=== PATIENT | female | born 1985 | race African-American/Black ===

== ENCOUNTER 2017-12-17 04:11 | Inpatient (IN) | payer MEDICAID ==
[2017-12-17] VITALS (24 sets, daily range): BP systolic 135–192; BP diastolic 65–124; PULSE 98–141; RESP 16–21; TEMP 98.6–98.7; O2SAT 98–100
[~2017-12-17] VITALS: Ht 165.1 cm; Wt 109.0 kg
[~2017-12-17 04:11] MED LIST: ALPR-138 PO; LISI10 PO
[2017-12-17] MEDS ORDERED: FAMOTIDINE 20 MG/2 ML VIAL IV PUSH SCH ×2 (04:30→09:00)
[2017-12-17] MEDS ORDERED: diphenhydrAMINE HCL 50 MG/ML VIAL IV PUSH ONE (04:30)
[2017-12-17] MEDS ORDERED: EPINEPHrine HCL (1:1000) 1 MG/ML VIAL IM ONE (04:30)
[2017-12-17] MEDS ORDERED: methylPREDNISolone SOD SUCC 125 MG/2 ML VIAL IV PUSH ONE (04:30)
[2017-12-17] MEDS ORDERED: LISI-515 PO (04:49)
--- NOTE | 2017-12-17 04:51 | PD ---
HPI Chief Complaint: Allergic/Adverse Reaction Time Seen by Provider: 04:21 Travel History International Travel<30 days: No Contact w/Intl Traveler<30days: No Traveled to known affect area: No History of Present Illness HPI The patient is a 32 year old female who presents to the [facility] emergency department with a history of tongue swelling and lip swelling that she first noticed approximately 3 hours prior to arrival. The patient reports that she has had similar tongue swelling many years ago related to a food allergy. She reports that she believes that she was exposed to 1 of her allergens yesterday morning. She reports that she was exposed to tomato sauce. The patient incidentally also is on lisinopril for her blood pressure. She has been on this medication for the last 4 years. She denies having any chest pain, chest pressure, or shortness of breath. She denies having any rash or generalized itching. She denies having any abdominal pain, nausea, vomiting, or diarrhea. On review of systems otherwise, she denies having any known recent fevers, cough, congestion, neck pain, urinary symptoms, or neurologic symptoms. [facility] Past Medical History Narrative Medical The patient's past medical history is significant for anxiety disorder, hypertension, multiple environmental allergies and food allergies. Anemia: Yes Arthritis: No Asthma: No Autoimmune Disease: No Anxiety: Yes Depression: No Heart Rhythm Problems: No Cancer: No Cardiovascular Problems: Yes High Cholesterol: No Chemotherapy: No Chest Pain: Yes (STRESS INDUCED) Congestive Heart Failure: No COPD: No Cerebrovascular Accident: No Diabetes: No Endocrine: No Gastrointestinal Disorders: Yes GERD: No Genitourinary: Yes (UNSURE OF KIDNEY ISSUE) Headaches: Yes Hiatal Hernia: No Hypertension: Yes Immune Disorder: No Implanted Vascular Access Dvce: No Kidney Stones: No Musculoskeletal: No Neurologic: Yes Psychiatric: No Reproductive: No Respiratory: Yes Immunizations Current: Yes Migraines: Yes Radiation Therapy: No Renal Failure: No Seizures: No Sickle Cell Disease: No Sleep Apnea: No Thyroid Disease: No Ulcer: No Influenza Vaccination: No ?: Unknown LMP: 12/03/2017 Menopausal: No : 4 Para: 4 Past Surgical History Narrative Surgical The patient's past surgical history is significant for a . Abdominal Surgery: No AICD: No Arteriovenous Shunt: No Cardiac Surgery: No Section: Yes Ear Surgery: No Endocrine Surgery: No Eye Surgery: No Genitourinary Surgery: No Gynecologic Surgery: Yes () Insulin Pump: No Joint Replacement: No Oral Surgery: No Pacemaker: No Thoracic Surgery: No Other Surgery: Yes Social History Alcohol Use: No Tobacco Use: No Substance Use: No Allergies-Medications (Allergen,Severity, Reaction): Coded Allergies: ciprofloxacin (Verified Allergy, Intermediate, DIZZINESS, 12/17/17) Reported Meds & Prescriptions Reported Meds & Active Scripts Active Review of Systems Except as stated in HPI: all other systems reviewed are Neg General / Constitutional: No: Fever Eyes: No: Visual changes HENT: Positive: Other (tongue swelling), No: Headaches Cardiovascular: No: Chest Pain or Discomfort Respiratory: No: Shortness of Breath Gastrointestinal: No: Abdominal Pain Genitourinary: No: Dysuria Musculoskeletal: No: Pain Skin: No Rash Neurologic: No: Weakness, Focal Abnormalities, Change in Mentation, Slurred Speech, Sensory Disturbance Psychiatric: No: Depression Endocrine: No: Polydipsia Hematologic/Lymphatic: No: Easy Bruising Physical Exam Narrative General: The patient is a well-developed well-nourished female in no acute distress. Head and Neck exam: Head is normocephalic atraumatic. Eyes: EOMI, pupils are equal round and reactive to light. Nose: Midline septum with pink mucous membranes Mouth: Dentition unremarkable. Tongue is noted to be protruding from her mouth. The patient is also noted to have swelling along the lower right lip. Moist mucus membranes. Posterior oropharynx is not erythematous. No tonsillar hypertrophy. Uvula midline. Airway patent. Neck: No palpable lymphadenopathy. No nuchal rigidity. No thyromegaly. Cardiovascular: Regular rate and rhythm without murmurs, gallops, or rubs. No pulse deficit to the extremities. Lungs: Clear to auscultation bilaterally. No wheezes, rhonchi, or rales. Abdomen: Soft, without tenderness to palpation in all 4 quadrants of the abdomen. No guarding, rebound, or rigidity. Normal bowel sounds are audible. No tenderness on palpation of McBurney's point. Negative Leung sign. Extremities: No clubbing, cyanosis, or edema. 2+ pulses in all 4 extremities. Back: No costovertebral angle tenderness to palpation. Neurologic Exam: Grossly nonfocal. Skin Exam: No rash noted. Intact skin that is warm and dry. Data Data Last Documented VS Vital Signs Date Time Temp Pulse Resp B/P (MAP) Pulse Ox O2 Delivery O2 Flow Rate FiO2 12/17/17 04:43 100 20 100 Room Air 12/17/17 04:41 135/80 Orders Orders Complete Blood Count With Diff (12/17/17 04:21) Basic Metabolic Panel (Bmp) (12/17/17 04:21) Iv Access Insert/Monitor (12/17/17 04:21) Ecg Monitoring (12/17/17 04:21) Oximetry (12/17/17 04:21) Fresh Frozen Plasma (Ffp) (12/17/17 04:21) Methylprednisolone So Succ Inj (Solumedr (12/17/17 04:30) Epinephrine (1:1000) Inj (Adrenalin (1:1 (12/17/17 04:30) Diphenhydramine Inj (Benadryl Inj) (12/17/17 04:30) Famotidine Inj (Pepcid Inj) (12/17/17 04:30) Type And Screen (12/17/17 04:22) Admit Order (Ed Use Only) (12/17/17 05:06) Labs Laboratory Tests Test 12/17/17 04:45 White Blood Count 6.2 TH/MM3 Red Blood Count 4.30 MIL/MM3 Hemoglobin 12.9 GM/DL Hematocrit 38.8 % Mean Corpuscular Volume 90.1 FL Mean Corpuscular Hemoglobin 30.0 PG Mean Corpuscular Hemoglobin Concent 33.3 % Red Cell Distribution Width 12.8 % Platelet Count 247 TH/MM3 Mean Platelet Volume 9.5 FL Neutrophils (%) (Auto) 49.6 % Lymphocytes (%) (Auto) 39.2 % Monocytes (%) (Auto) 7.7 % Eosinophils (%) (Auto) 2.6 % Basophils (%) (Auto) 0.9 % Neutrophils # (Auto) 3.1 TH/MM3 Lymphocytes # (Auto) 2.4 TH/MM3 Monocytes # (Auto) 0.5 TH/MM3 Eosinophils # (Auto) 0.2 TH/MM3 Basophils # (Auto) 0.1 TH/MM3 CBC Comment DIFF FINAL Differential Comment Blood Urea Nitrogen 10 MG/DL Creatinine 0.95 MG/DL Random Glucose 110 MG/DL Calcium Level 8.8 MG/DL Sodium Level 137 MEQ/L Potassium Level 3.9 MEQ/L Chloride Level 106 MEQ/L Carbon Dioxide Level 22.3 MEQ/L Anion Gap 9 MEQ/L Estimat Glomerular Filtration Rate 82 ML/MIN MDM Medical Decision Making Medical Screen Exam Complete: Yes Emergency Medical Condition: Yes Medical Record Reviewed: Yes Differential Diagnosis Allergic reaction, versus angioedema related to ARTHUR inhibitor, versus hereditary angioedema Narrative Course During the course of the patient's emergency department visit, the patient's history, examination, and differential diagnosis were reviewed with the patient. The patient was placed on a cardiac exercise physiologist with oximetry and frequent blood pressure monitoring. The patient had IV access obtained and blood work sent for analysis. The patient was initially provided Benadryl 25 mg IV, Solu-Medrol 125 mg IV, epinephrine 0.3 IM, famotidine 20 mg IV. An order was written for 2 units of fresh frozen plasma to be administered. As the patient has a history of having similar angioedema as a teenager prior to being placed on an ARTHUR inhibitor hereditary angioedema is in the differential. Fresh frozen plasma has been known to be effective in cases of hereditary angioedema. The patient was agreeable with the plan to administer this. The patient's laboratory studies were reviewed and remarkable for a CBC that is within normal limits, basic metabolic profile is remarkable for a glucose of 110. The patient was repeatedly reassessed during the first hour of her emergency department visit while she was being administered medications for improvement of the angioedema. Gradually the patient's tongue swelling began to improve. The patient was then able to close her mouth. The patient is able to speak more clearly. The patient will be admitted to the intensive care unit for continued close monitoring while being treated for angioedema. The patient's results were discussed with the patient, including the plan of care. I explained that further testing and/ or monitoring is indicated based on the patient's history, examination, and/ or laboratory findings. Therefore, I recommended admission for additional evaluation. The patient expressed understanding and was agreeable with this plan. The patient was admitted to the hospital in guarded condition and sent to a bed under the care of the shipping point inspector service. Physician Communication Physician Communication The patient's case including history, pertinent physical examination findings, and laboratory studies were discussed with Dr. Arce. It was agreed that the patient would be admitted to the shipping point inspector service Diagnosis Primary Impression: Angioedema Qualified Codes: T78.3XXA - Angioneurotic edema, initial encounter Admitting Information Admitting Physician Requests: Admit Sarah Bhakta MD Dec 17, 2017 04:51
[2017-12-17 05:01] LABS: AUTOMATED NEUTROPHIL # 3.1 TH/MM3 (1.8-7.7); BASOPHIL # 0.1 TH/MM3 (0-0.2); BASOPHIL % 0.9 % (0.0-2.0); EOSINOPHIL # 0.2 TH/MM3 (0-0.4); EOSINOPHIL % 2.6 % (0.0-4.0); HEMATOCRIT 38.8 % (35.0-46.0); HEMOGLOBIN 12.9 GM/DL (11.6-15.3); LYMPH % 39.2 % (9.0-44.0); LYMPHOCYTE # 2.4 TH/MM3 (1.0-4.8); MEAN CELL VOLUME 90.1 FL (80.0-100.0); MEAN CORPUSCULAR HGB CONC 33.3 % (32.0-36.0); MEAN PLATELET VOLUME 9.5 FL (7.0-11.0); MONO % 7.7 % (0.0-8.0); MONOCYTE # 0.5 TH/MM3 (0-0.9); NEUT % 49.6 % (16.0-70.0); PLATELET COUNT 247 TH/MM3 (150-450); RED CELL DISTRIBUTION WIDTH 12.8 % (11.6-17.2); WHITE BLOOD COUNT 6.2 TH/MM3 (4.0-11.0)
[2017-12-17] MEDS ORDERED: SODIUM CHLOR 0.9% 1000 ML INJ 1,000 ML IV SCH (05:11)
[2017-12-17] MEDS ORDERED: BISACODYL 10 MG SUPP RECTAL PRN (05:15)
[2017-12-17] MEDS ORDERED: MORPHINE SULFATE 4 MG/ML INJ IV PUSH PRN (05:15)
[2017-12-17] MEDS ORDERED: SENNOSIDES 8.6 MG TAB PO PRN (05:15)
[2017-12-17] MEDS ORDERED: LACTULOSE SYRUP 20 GM/30 ML CUP PO PRN (05:15)
[2017-12-17] MEDS ORDERED: SODIUM CHLORIDE 0.9% FLUSH 10 ML FLUSH IV FLUSH PRN (05:15)
[2017-12-17] MEDS ORDERED: LORazepam 2 MG/ML VIAL IV PUSH PRN (05:15)
[2017-12-17] MEDS ORDERED: MISCELLANEOUS NURSING INFORMATION XX SCH (05:15)
[2017-12-17] MEDS ORDERED: RESP: ALBUTEROL 2.5 MG/IPRATROPIUM 0.5 MG NEB (PRN) INH (05:15)
[2017-12-17] MEDS ORDERED: MAGNESIUM HYDROXIDE SUSP 30 ML CUP PO PRN (05:15)
[2017-12-17] MEDS ORDERED: ONDANSETRON HCL 4 MG/2 ML VIAL IV PUSH PRN (05:15)
[2017-12-17] MEDS ORDERED: CHLORHEXIDINE GLUCONATE 2 % 1 PACK (2 CLOTHS) TOP PRN (05:15)
[2017-12-17] MEDS ORDERED: ACETAMINOPHEN 325 MG TAB PO PRN (05:15)
[2017-12-17] MEDS ORDERED: TEMAZEPAM 15 MG CAP PO PRN (05:15)
--- NOTE | 2017-12-17 05:25 | HHI.HP ---
[facility] Critical Care Medicine Primary Care Physician Jai Wilson, DO Admission Diagnosis Angioedema Diagnosis: Travel History International Travel<30 Days: No Contact w/Intl Traveler <30 Da: No Traveled to Known Affected Are: No History of Present Illness 32 year old female presents with a history of tongue swelling and lip swelling that she first noticed approximately 3 hours prior to arrival. The patient reports that she has had similar tongue swelling many years ago related to a food allergy. She reports that she believes that she was exposed to 1 of her allergens yesterday morning which was tomato sauce. The patient is also on lisinopril for her blood pressure. She has been on this medication for the last 4 years. She denies having any chest pain, chest pressure, or shortness of breath. She denies having any rash or generalized itching. She denies having any abdominal pain, nausea, vomiting, or diarrhea. Review of Systems Constitutional: DENIES: Diaphoretic episodes, Fatigue, Fever, Weight gain, Weight loss, Chills, Dizziness, Change in appetite, Night Sweats Endocrine: DENIES: Abnorml menstrual pattern, Heat/cold intolerance, Polydipsia , Polyuria, Polyphagia Eyes: DENIES: Blurred vision, Diplopia, Eye inflammation, Eye pain, Vision loss , Photosensitivity, Double Vision Ears, nose, mouth, throat: DENIES: Tinnitus, Hearing loss, Vertigo, Nasal discharge, Oral lesions, Throat pain, Hoarseness, Ear Pain, Running Nose, Epistaxis, Sinus Pain, Toothache, Odynophagia Respiratory: DENIES: Apneas, Cough, Snoring, Wheezing, Hemoptysis, Sputum production, Shortness of breath Cardiovascular: DENIES: Chest pain, Palpitations, Syncope, Dyspnea on Exertion , PND, Lower Extremity Edema, Orthopnea, Claudication Gastrointestinal: DENIES: Abdominal pain, Black stools, Bloody stools, Constipation, Diarrhea, Nausea, Vomiting, Difficulty Swallowing, Anorexia Genitourinary: DENIES: Abnormal vaginal bleeding, Dysmenorrhea, Dyspareunia, Sexual dysfunction, Urinary frequency, Urinary incontinence, Urgency, Hematuria , Dysuria, Nocturia, Vaginal discharge Musculoskeletal: DENIES: Joint pain, Muscle aches, Stiffness, Joint Swelling, Back pain, Neck pain Integumentary: DENIES: Abnormal pigmentation, Pruritus, Rash, Nail changes, Breast masses, Breast skin changes, Nipple discharge Hematologic/lymphatic: DENIES: Bruising, Lymphadenopathy Immunologic/allergic: DENIES: Eczema, Urticaria Neurologic: DENIES: Abnormal gait, Headache, Localized weakness, Paresthesias, Seizures, Speech Problems, Tremor, Poor Balance Psychiatric: DENIES: Anxiety, Confusion, Mood changes, Depression, Hallucinations, Agitation, Suicidal Ideation, Homicidal Ideation, Delusions Past Family Social History Allergies: Coded Allergies: ciprofloxacin (Verified Allergy, Intermediate, DIZZINESS, 12/17/17) Past Medical History Hypertension Food allergies Past Surgical History Reported Medications Reported Meds & Active Scripts Active Lisinopril Active Ordered Medications Current Medications Medications (Trade) Dose Ordered Sig/Bryon Route PRN Reason Start Time Stop Time Status Last Admin Dose Admin Famotidine (Pepcid Inj) 20 mg NOW IV PUSH 12/17/17 04:30 12/17/17 04:41 Sodium Chloride 1,000 ml @ 84 mls/hr [id number] IV 12/17/17 05:11 UNV Sodium Chloride (NS Flush) 2 ml UNSCH PRN IV FLUSH FLUSH AFTER USING IV ACCESS 12/17/17 05:15 UNV Sodium Chloride (NS Flush) 2 ml BID IV FLUSH 12/17/17 09:00 UNV Acetaminophen (Tylenol) 650 mg Q6H PRN PO PAIN 1-5 AND/OR FEVER >101F 12/17/17 05:15 UNV Morphine Sulfate (Morphine Inj) 2 mg Q2H PRN IV PUSH PAIN SCALE 6 TO 10 12/17/17 05:15 UNV Famotidine (Pepcid Inj) 20 mg Q12HR IV PUSH 12/17/17 09:00 UNV Lorazepam (Ativan Inj) 2 mg Q4H PRN IV PUSH Agitation/Sedation 12/17/17 05:15 UNV Ondansetron HCl (Zofran Inj) 4 mg Q6H PRN IV PUSH NAUSEA OR VOMITING 12/17/17 05:15 UNV Temazepam (Restoril) 15 mg HS PRN PO INSOMNIA 12/17/17 05:15 UNV Albuterol/ Ipratropium (Duoneb Neb) 1 ampule Q2HR NEB PRN INH WHEEZING 12/17/17 05:15 UNV Enoxaparin Sodium (Lovenox Inj) 40 mg Q24H SQ 12/17/17 05:15 UNV Miscellaneous Information 1 [id number] XX 12/17/17 05:15 UNV Chlorhexidine Gluconate (Chlorhexidine 2% Cloth) 3 pack Taper DAILY@04 TOP 12/18/17 04:00 12/14/18 03:59 UNV Chlorhexidine Gluconate (Chlorhexidine 2% Cloth) 3 pack UNSCH PRN TOP HYGIENIC CARE 12/17/17 05:15 UNV Senna/Docusate Sodium (Maryse-Colace) 1 tab BID PO 12/17/17 09:00 UNV Magnesium Hydroxide (Milk Of Magnesia Liq) 30 ml Q12H PRN PO Mild constipation 12/17/17 05:15 UNV Sennosides (Senokot) 17.2 mg Q12H PRN PO Moderate constipation 12/17/17 05:15 UNV Bisacodyl (Dulcolax Supp) 10 mg DAILY PRN RECTAL SEVERE CONSITIPATION 12/17/17 05:15 UNV Lactulose (Lactulose Liq) 30 ml DAILY PRN PO SEVERE CONSITIPATION 12/17/17 05:15 UNV Family History No family history of hereditary angioedema Social History Denies tobacco, alcohol, or illicit drug abuse Physical Exam Vital Signs Vital Signs Date Time Temp Pulse Resp B/P (MAP) Pulse Ox O2 Delivery O2 Flow Rate FiO2 12/17/17 04:43 100 20 100 Room Air 12/17/17 04:41 98 135/80 12/17/17 04:23 20 100 Room Air 12/17/17 04:15 98 20 135/80 (98) 100 Physical Exam GENERAL: Well-nourished, well-developed patient. SKIN: Warm and dry. HEAD: Normocephalic. EYES: No scleral icterus. No injection or drainage. NECK: Supple, trachea midline. No JVD or lymphadenopathy. Mouth: Dentition unremarkable. Tongue is noted to be protruding from her mouth. There is also swelling along the lower right lip. Moist mucus membranes. Posterior oropharynx is not erythematous. No tonsillar hypertrophy. Uvula midline. Airway patent. CARDIOVASCULAR: Regular rate and rhythm without murmurs, gallops, or rubs. RESPIRATORY: Breath sounds equal bilaterally. No accessory muscle use. GASTROINTESTINAL: Abdomen soft, non-tender, nondistended. MUSCULOSKELETAL: No cyanosis, or edema. BACK: Nontender without obvious deformity. NEURO EXAM: GCS: 15 Mental Status: The patient is alert and oriented to person, place, and time with normal speech. Cranial Nerves: Visual acuity intact bilaterally. Visual esquivel normal in all quadrants. Pupils are round, reactive to light. Extraocular movements are intact without ptosis. Hearing is normal bilaterally. Voice is normal. Tongue protrudes midline and moves symmetrically. Laboratory Laboratory Tests Test 12/17/17 04:45 White Blood Count 6.2 Red Blood Count 4.30 Hemoglobin 12.9 Hematocrit 38.8 Mean Corpuscular Volume 90.1 Mean Corpuscular Hemoglobin 30.0 Mean Corpuscular Hemoglobin Concent 33.3 Red Cell Distribution Width 12.8 Platelet Count 247 Mean Platelet Volume 9.5 Neutrophils (%) (Auto) 49.6 Lymphocytes (%) (Auto) 39.2 Monocytes (%) (Auto) 7.7 Eosinophils (%) (Auto) 2.6 Basophils (%) (Auto) 0.9 Neutrophils # (Auto) 3.1 Lymphocytes # (Auto) 2.4 Monocytes # (Auto) 0.5 Eosinophils # (Auto) 0.2 Basophils # (Auto) 0.1 CBC Comment DIFF FINAL Differential Comment Result Diagram: 12/17/17 0445 Septic Shock Reassessment Septic shock perfusion: reassessment completed Caprini VTE Risk Assessment Caprini VTE Risk Assessment: Mod/High Risk (score >= 2) Caprini Risk Assessment Model Point Value = 1 Point Value = 2 Point Value = 3 Point Value = 5 Age 41-60 Minor surgery BMI > 25 kg/m2 Swollen legs Varicose veins or History of unexplained or recurrent spontaneous Oral contraceptives or hormone replacement Sepsis (< 1 month) Serious lung disease, including pneumonia (< 1 month) Abnormal pulmonary function Acute myocardial infarction Congestive heart failure (< 1 month) History of inflammatory bowel disease Medical patient at bed rest Age 61-74 Arthroscopic surgery Major open surgery (> 45 min) Laparoscopic surgery (> 45 min) Malignancy Confined to bed (> 72 hours) Immobilizing plaster cast Central venous access Age >= 75 History of VTE Family history of VTE Factor V Leiden Prothrombin [id number] Lupus anticoagulant Anticardiolipin antibodies Elevated serum homocysteine Heparin-induced thrombocytopenia Other congenital or acquired thrombophilia Stroke (< 1 month) Elective arthroplasty Hip, pelvis, or leg fracture Acute spinal cord injury (< 1 month) Prophylaxis Regimen Total Risk Factor Score Risk Level Prophylaxis Regimen 0-1 Low Early ambulation 2 Moderate Order ONE of the following: *Sequential Compression Device (SCD) *Heparin 5000 units SQ BID 3-4 Higher Order ONE of the following medications: *Heparin 5000 units SQ TID *Enoxaparin/Lovenox 40 mg SQ daily (WT < 150 kg, CrCl > 30 mL/min) *Enoxaparin/Lovenox 30 mg SQ daily (WT < 150 kg, CrCl > 10-29 mL/min) *Enoxaparin/Lovenox 30 mg SQ BID (WT < 150 kg, CrCl > 30 mL/min) AND/OR *Sequential Compression Device (SCD) 5 or more Highest Order ONE of the following medications: *Heparin 5000 units SQ TID (Preferred with Epidurals) *Enoxaparin/Lovenox 40 mg SQ daily (WT < 150 kg, CrCl > 30 mL/min) *Enoxaparin/Lovenox 30 mg SQ daily (WT < 150 kg, CrCl > 10-29 mL/min) *Enoxaparin/Lovenox 30 mg SQ BID (WT < 150 kg, CrCl > 30 mL/min) AND *Sequential Compression Device (SCD) Assessment and Plan Assessment and Plan Angioedema -Allergic reaction -Lisinopril versus food allergy -IV steroids, H1 and H2 antagonists -ICU admission -Monitor for airway Hypertension -Hydralazine as needed to keep SBP less than 160 DVT GI prophylaxis -Sammy's and SCDs -Lovenox -Pepcid Critical Care: The total critical care time was 35 minutes. Time to perform other separately billable procedures was not included in the critical care time. Ross Arce MD Dec 17, 2017 05:25
[2017-12-17 05:28] LABS: BICARBONATE 22.3 MEQ/L (21.0-32.0); CALCIUM 8.8 MG/DL (8.5-10.1); CREATININE 0.95 MG/DL (0.50-1.00)
[2017-12-17] MEDS ORDERED: DEXAMETHASONE SOD PHOS 20 MG/5 ML VIAL IV PUSH ONE (05:30)
[2017-12-17] MEDS ORDERED: SODIUM CHLORIDE 0.9% FLUSH 10 ML FLUSH IV FLUSH SCH (09:00)
[2017-12-17] MEDS ORDERED: ENOXAPARIN SODIUM 40 MG/0.4 ML SYRINGE SQ SCH (09:00)
[2017-12-17] MEDS ORDERED: DOCUSATE SODIUM 50 MG/SENNA 8.6 MG TAB PO SCH (09:00)
[2017-12-17] MEDS ORDERED: diphenhydrAMINE HCL 50 MG/ML VIAL IV PUSH SCH (11:00)
[2017-12-17] MEDS: hydrALAZINE HCL 20 MG/ML VIAL IV PUSH PRN ×2 (11:28→12:38)
[2017-12-17] MEDS ORDERED: DEXAMETHASONE SOD PHOS 4 MG/ML VIAL IV PUSH SCH (12:00)
[2017-12-17] MEDS ORDERED: LABETALOL HCL 100 MG/20 ML VIAL IV PUSH PRN (14:00)
[2017-12-18] MEDS ORDERED: CHLORHEXIDINE GLUCONATE 2 % 1 PACK (2 CLOTHS) TOP SCH (04:00)
--- NOTE | 2017-12-18 20:47 | EKG ---
Date Performed: 12/17/2017 Time Performed: 13:18:58 PTAGE: 32 years EKG: SINUS TACHYCARDIA WITH SHORT AK INTERVAL, POSSIBLE ATRIAL FLUTTER MODERATE ST DEPRESSION Co mpared to previous tracing, HR is faster, most likely sinus tachycardia although atrial flutter/tachy cardia cannot be exclude on this EKG. Recommend repeat EKG at a slower HR ABNORMAL ECG PREVIOUS TRACING : 12/26/2011 18.33 DOCTOR: Yovanny Hannon Interpretating Date/Time 12/18/2017 20:45:45
== END 2017-12-17 17:22 | disposition left against medical advice (07) | DRG 916 ==
LOC: NEPE 04:11 → NEDA 05:07 → NEDH 11:03
PROVIDERS: ADMIT Internal Medicine Critical Care Medicine; ATTEND Internal Medicine Critical Care Medicine
DX: T78.3XXA Angioneurotic edema, initial encounter (principal); I10 Essential (primary) hypertension; F41.9 Anxiety disorder, unspecified; Z88.1 Allergy status to other antibiotic agents
CPT/HCPCS: 36430; 80048; 85025; 86850; 86900; 86901; 86927; 93005; 96372; 96374; 96375; J0171; J0360; J1100; J1200; J1650; J2060; J2930; J7030; P9017

== ENCOUNTER 2018-05-23 05:38 | Inpatient (IN) ==
[2018-05-23] MEDS ORDERED: MethylPREDNISolone Sod Succinate Inj 125 MG/2 ML Vial IV.PUSH ONE (05:44)
[2018-05-23] MEDS ORDERED: Famotidine PF Inj 20 MG/2 ML Vial IV.PUSH ONE (05:44)
[2018-05-23] MEDS ORDERED: Sod Chloride 0.9% Inj 1,000 ML IV.CONT SCH (06:00)
--- NOTE | 2018-05-23 06:13 | ED ---
HPI General Chief complaint: Allergic Reaction Stated complaint: Allergic reaction Time Seen by Provider: 05/23/18 05:44 Source: patient and EMS Mode of arrival: EMS Limitations: other (marked tongue angioedema interferes with patient speaking) History of Present Illness HPI narrative: 32-year-old female presents to the emergency department from home by EMS transport for lingual angioedema. 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 Patient has had tongue edema in the past. Patient has been treated as recently as December 2017 for marked angioedema of the tongue. Unclear whether or not patient has familiar angioedema but reportedly per medical record has been treated in childhood with angioedema of the tongue. Upon arrival to the emergency department paramedics report patient had received a one-time dose of Benadryl and no other medications administered. Patient able to mouth certain words and articulate certain words but with some difficulty due to size of the tongue. Patient able to handle her oral secretions somewhat and occasionally drooling with oral secretions. Patient denies any throat swelling all of her angioedema is isolated to the tongue and sparing the lips. Patient indicates she was awakened at 2 AM from sleep with swelling of the tongue that progressed and until 3 AM one time was too swollen for her to feel like she could remain home safely and had family member call paramedics. complaint: allergic reaction and other Onset (ago): hour(s) (3) Exposure: medication (Possible lisinopril) and other (Possible hereditary angioedema) Symptoms: tongue swelling Severity: severe Treatment prior to arrival: benadryl Previous Allergic Reaction History: angioedema (treated with FFP) Related Data Home Medications Medication Instructions Recorded Confirmed lisinopril 20 mg PO DAILY 05/23/18 05/23/18 Allergies Allergy/AdvReac Type Severity Reaction Status Date / Time [place] And Derivatives Allergy Severe Verified 12/17/17 07:43 coconut Allergy Severe Verified 12/17/17 07:43 tomato Allergy Severe Verified 12/17/17 07:43 ciprofloxacin Allergy Intermediate DIZZINESS Verified 12/17/17 04:45 Review of Systems ROS: all other systems reviewed are negative PMFSH History History Provided By: Medical Record (angioedema) Medical History Medical History delivery delivered (Acute) Hypertension (Acute) Family History Family History Other Family history of angioedema Social History Social History Substance History: No History of Abuse Smoking Status: Current every day smoker Tobacco Type: Cigarettes How Often Do You Have a Drink Containing Alcohol: 2 to 3 times a week Recent Travel in [facility] within the Last 8 Weeks: No Recent Out of Country Travel within the Last 8 Weeks: No Exam Narrative Exam Narrative: GENERAL: Well-nourished, well-developed patient. In moderate distress no respiratory distress although marked tongue swelling/angioedema tongue protruding from the mouth with oral secretions being managed by washcloth and swallowing secretions. No stridor. SKIN: Focused skin assessment warm/dry. No urticaria. HEAD: Normocephalic. EYES: No scleral icterus. No injection or drainage. NECK: Supple, trachea midline. No JVD or lymphadenopathy. CARDIOVASCULAR: Regular rate and rhythm without murmurs, gallops, or rubs. RESPIRATORY: Breath sounds equal bilaterally. No accessory muscle use. GASTROINTESTINAL: Abdomen soft, non-tender, nondistended. MUSCULOSKELETAL: No cyanosis, or edema. BACK: Nontender without obvious deformity. No CVA tenderness. Course Initial Documented Vital Signs Temperature 98.3 F 05/23/18 05:50 Pulse Rate 94 H 05/23/18 05:50 Respiratory Rate 16 05/23/18 05:50 Blood Pressure 154/83 H 05/23/18 05:50 Pulse Oximetry 100 05/23/18 05:50 Last Documented Vital Signs Temperature 98.3 F 05/23/18 16:00 Pulse Rate 74 05/23/18 18:00 Respiratory Rate 21 05/23/18 18:00 Blood Pressure 157/84 H 05/23/18 18:00 Pulse Oximetry 100 05/23/18 18:00 Medical Decision Making [facility] Narrative Medical decision making narrative: 32-year-old female with recurrent angioedema of the tongue per patient indicates onset since 2 AM with progressive worsening. Patient placed on air sampling and monitoring with continuous pulse oximetry IV access obtained specimens collected and sent for resulting. Patient administered epinephrine 0.3 cc IM 1 dose along with Solu-Medrol 125 mg IV Pepcid 20 mg IV and Benadryl 25 mg IV. Patient ordered FFP 2 units. Review of medical records indicates patient has been seen in the past in this emergency department and hospitalized in the ICU with angioedema of the tongue and responded to FFP administration as well as standard medications for allergic reaction. Unclear if angioedema is related to lisinopril although she continues to take lisinopril for blood pressure management after episode of angioedema December 2017. At 6:34 AM discussed with and accepted by Dr. Robledo; has seen patient in the ED, known to him. Medical Screen Exam Complete: Yes Emergency Medical Condition: Yes Differential Diagnosis Differential Diagnosis: Angioedema of the tongue, ARTHUR inhibitor induced angioedema, hereditary angioedema, dietary precipitation of angioedema Medical Records Medical records reviewed: Yes I reviewed the patient's medical records. Lab Data Result diagrams: 05/23/18 06:05 05/23/18 06:05 Lab Results 05/23/18 05/23/18 05/23/18 Range/Units 06:05 06:05 06:45 WBC 8.1 (4.0-11.0) th/mm3 RBC 4.21 (4.00-5.30) mil/mm3 Hgb 12.8 (11.6-15.3) gm/dL Hct 38.1 (35.0-46.0) % MCV 90.5 (80.0-100.0) fL MCH 30.4 (27.0-34.0) pg MCHC 33.5 (32.0-36.0) % RDW 12.9 (11.6-17.2) % Plt Count 256 (150-450) th/mm3 MPV 9.5 (7.0-11.0) fL Prelim Diff (Auto) Slide review pending Neut % (Auto) 48.7 (16.0-70.0) % Lymph % (Auto) 41.7 (9.0-44.0) % [place] % (Auto) 6.0 (0.0-8.0) % Eos % (Auto) 3.1 (0.0-4.0) % Baso % (Auto) 0.5 (0.0-2.0) % Neut # (Auto) 3.9 (1.8-7.7) th/mm3 Lymph # (Auto) 3.4 (1.0-4.8) th/mm3 [place] # (Auto) 0.5 (0.0-0.9) th/mm3 Eos # (Auto) 0.2 (0.0-0.4) th/mm3 Baso # (Auto) 0.0 (0.0-0.2) th/mm3 WBC Differential . Diff Scan Auto diff confirmed Differential Comment . Platelet Estimate Normal (Normal) Platelet Morphology Normal (Normal) RBC Morphology Normal (Normal) Sodium 140 (136-145) meq/L Potassium 3.5 (3.5-5.1) meq/L Chloride 106 (98-107) meq/L Carbon Dioxide 21.1 (21.0-32.0) meq/L Anion Gap 13 (5-15) meq/L BUN 11 (7-18) mg/dL Creatinine 0.83 (0.50-1.00) mg/dL Estimated GFR Greater than 89 (>89) mL/min POC Glucose (68-110) mg/dl Random Glucose 119 H (74-106) mg/dL Calcium 9.3 (8.5-10.1) mg/dL Nasal Screen MRSA (PCR) (Negative) Blood Type O Positive Antibody Screen Negative Blood Bank Comment 05/23/18 05/23/18 05/23/18 Range/Units 08:20 11:20 17:26 WBC (4.0-11.0) th/mm3 RBC (4.00-5.30) mil/mm3 Hgb (11.6-15.3) gm/dL Hct (35.0-46.0) % MCV (80.0-100.0) fL MCH (27.0-34.0) pg MCHC (32.0-36.0) % RDW (11.6-17.2) % Plt Count (150-450) th/mm3 MPV (7.0-11.0) fL Prelim Diff (Auto) Neut % (Auto) (16.0-70.0) % Lymph % (Auto) (9.0-44.0) % [place] % (Auto) (0.0-8.0) % Eos % (Auto) (0.0-4.0) % Baso % (Auto) (0.0-2.0) % Neut # (Auto) (1.8-7.7) th/mm3 Lymph # (Auto) (1.0-4.8) th/mm3 [place] # (Auto) (0.0-0.9) th/mm3 Eos # (Auto) (0.0-0.4) th/mm3 Baso # (Auto) (0.0-0.2) th/mm3 WBC Differential Diff Scan Differential Comment Platelet Estimate (Normal) Platelet Morphology (Normal) RBC Morphology (Normal) Sodium (136-145) meq/L Potassium (3.5-5.1) meq/L Chloride (98-107) meq/L Carbon Dioxide (21.0-32.0) meq/L Anion Gap (5-15) meq/L BUN (7-18) mg/dL Creatinine (0.50-1.00) mg/dL Estimated GFR (>89) mL/min POC Glucose 141 H 144 H (68-110) mg/dl Random Glucose (74-106) mg/dL Calcium (8.5-10.1) mg/dL Nasal Screen MRSA (PCR) Not detected (Negative) Blood Type Antibody Screen Blood Bank Comment Discharge Plan Discharge Disposition Patient Disposition: 30 Still Patient Discharge Condition Condition: Stable Discharge Details Diagnosis: Angioedema Physicians Team ED Provider: Ashley Ramirez Primary Care Provider: Jai Wilson Attending Provider: Pancho Robledo Other Providers: Reji Silva Status ED Status: Left Department Discharge Information Discharge Date/Time: 05/23/18 08:19
[2018-05-23 06:20] LABS: Baso % (Auto) 0.5 % (0.0-2.0); Eos # (Auto) 0.2 th/mm3 (0.0-0.4); Eos % (Auto) 3.1 % (0.0-4.0); Hematocrit 38.1 % (35.0-46.0); Hemoglobin 12.8 gm/dL (11.6-15.3); Lymph # (Auto) 3.4 th/mm3 (1.0-4.8); Lymph % (Auto) 41.7 % (9.0-44.0); Mean Corpuscular HGB Conc 33.5 % (32.0-36.0); Mean Corpuscular Hemoglobin 30.4 pg (27.0-34.0); Mean Corpuscular Volume 90.5 fL (80.0-100.0); Mean Platelet Volume 9.5 fL (7.0-11.0); Mono # (Auto) 0.5 th/mm3 (0.0-0.9); Neut # (Auto) 3.9 th/mm3 (1.8-7.7); Neut % (Auto) 48.7 % (16.0-70.0); Platelet Count 256 th/mm3 (150-450); Red Blood Count 4.21 mil/mm3 (4.00-5.30); Red Cell Distribution Width 12.9 % (11.6-17.2); White Blood Count 8.1 th/mm3 (4.0-11.0)
[2018-05-23 06:38] LABS: Anion Gap 13 meq/L (5-15); Blood Urea Nitrogen 11 mg/dL (7-18); Calcium 9.3 mg/dL (8.5-10.1); Carbon Dioxide 21.1 meq/L (21.0-32.0); Chloride 106 meq/L (98-107); Glomerular Filtration Rate Greater Than 89 mL/min (>89); Glucose,Random 119 mg/dL (74-106); Potassium 3.5 meq/L (3.5-5.1); Sodium 140 meq/L (136-145)
[2018-05-23 06:52] LABS: Platelet Estimate Normal (Normal); Platelet Morphology Normal (Normal); RBC Morphology Normal (Normal)
[2018-05-23] MEDS ORDERED: Bisacodyl 10 MG Supp RECTAL PRN (07:00)
[2018-05-23] MEDS ORDERED: Morphine Sulfate Inj 2 MG/ML Vial IV.PUSH PRN (07:00)
[2018-05-23] MEDS ORDERED: Labetalol HCl Inj 100 MG/20 ML Vial IV.PUSH PRN (07:03)
[2018-05-23] MEDS ORDERED: hydrALAZINE HCl Inj 20 MG/ML Vial IV.PUSH PRN (07:04)
[2018-05-23] MEDS ORDERED: Potassium Chlor 20 mEq Premix 20 MEQ/100 ML PIGGYBACK IV.SIG PRN ×2 (07:12)
[2018-05-23] MEDS ORDERED: Magnesium Sulfate Inj 2 GM in Sodium Chlor 0.9% Inj 96 ML IV.SIG PRN (07:12)
[2018-05-23] MEDS ORDERED: Potassium Phosphate Inj 30 MMOL in Sodium Chlor 0.9% Inj 250 ML IV.SIG PRN (07:12)
[2018-05-23] MEDS ORDERED: Magnesium Oxide 400 MG Tablet PO PRN (07:12)
[2018-05-23] MEDS ORDERED: Potassium Chlor 40 mEq Premix 40 MEQ/100 ML PIGGYBACK IV.SIG PRN ×2 (07:12)
[2018-05-23] MEDS ORDERED: Magnesium Sulfate Inj 4 GM in Sodium Chlor 0.9% Inj 92 ML IV.SIG PRN (07:12)
[2018-05-23] MEDS ORDERED: Potassium Phosphate 500 MG Soluble Tablet PO PRN ×2 (07:12)
[2018-05-23] MEDS ORDERED: Sodium Phosphate Inj 30 MMOL in Sodium Chlor 0.9% Inj 250 ML IV.SIG PRN (07:12)
[2018-05-23] MEDS ORDERED: Potassium Chloride 25 MEQ Effervescent Tablet PO PRN (07:12)
[2018-05-23] MEDS ORDERED: Dextrose 50% in Water 50 ML Vial IV.PUSH PRN (07:13)
--- NOTE | 2018-05-23 07:28 | P.HPCC ---
History of Present Illness Service: Critical care medicine Primary Care Physician: Jai Wilson Chief Complaint: Swollen tongue History of Present Illness: 32-year-old AA female. Date of admission 05/23/2019. Past medical history includes essential hypertension and prior angioedema. This morning, she presents to the emergency department from home by EMS transport for lingual angioedema. Patient woke approximately 2 AM from sleep with a swollen tongue. 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 Patient has had tongue edema in the past. Patient has been treated as recently as December 2017 for marked angioedema of the tongue with diphenhydramine, famotidine and methylprednisolone succinate and fresh frozen plasma. Unclear whether or not patient has familiar angioedema but reportedly per medical record has been treated in childhood with angioedema of the tongue in there are family members with similar disorder.. Upon arrival to the emergency department paramedics report patient had received a one-time dose of diphenhydramine. Able to articulate some words but with some difficulty due to size of the tong able to protect her oral secretions. Unable to visualize uvula. Patient has received an additional segmental penicillins, and 25 mg of methylprednisolone succinate and 20 mg of famotidine. He states that her swelling is reducing and is able to articulate words. Inpatient Certification: I certify that the inpatient services were ordered in accordance with Medicare regulations governing the order. This includes certification that hospital inpatient services are reasonable and necessary and in the case of services not specified as inpatient-only under 42 CFR 419.22(n), that they are appropriately provided as inpatient services in accordance to with the 2-midnight benchmark under 43 CFR 412.3(e) Estimated Total Length of Stay (Days): 3 Plans for Post Hospital Care: Home Review of Systems Constitutional: Denies anorexia, Denies body ache(s), Denies chills Eyes: Denies blind spots Ears, Nose, Mouth, and Throat: Reports tongue swelling, Denies abnormal hearing , Denies bad breath, Denies sore throat, Denies throat swelling Cardiovascular: Denies chest pain, Denies irregular heart rhythm Respiratory: Denies change in phlegm color Gastrointestinal: Denies abdominal pain Genitourinary: Denies abnormal periods Musculoskeletal: Denies abnormal walking Skin/Breast: Denies acne Neurologic: Denies abnormal hearing, Denies abnormal movements Psychiatric: Reports anxiety, Denies abnormal sleep pattern Endocrine: Denies cold intolerance, Denies excessive sweating Hematologic/Lymphatic: Denies easy bleeding Allergic/Immunologic: Reports GI upset with certain foods, Reports tongue swelling PMFSH - History History Provided By: Medical Record (angioedema) - Medical History Medical History: Medical History (Last Updated 05/23/18 @ 07:21 by Pancho Robledo MD) History of angioedema Hypertension - Surgical History Surgical History: Surgical History (Last Updated 05/23/18 @ 07:21 by Pancho Robledo MD) delivery delivered (Acute) - Family History Family History: Family History (Last Updated 05/23/18 @ 07:21 by Pancho Robledo MD) Other Family history of angioedema - Tobacco History Tobacco Use In Past 30 Days: Yes Smoking Status: Current every day smoker Tobacco Type: Cigarettes - Alcohol History How Often Do You Have a Drink Containing Alcohol: 2 to 3 times a week - Substance Use History Substance History: No History of Abuse - Travel History Recent Travel in the [place] Within the Last 8 Weeks: No Recent Travel Out of the Country Within the Last 8 Weeks: No - Immunization History Tetanus Immunization: >5 Years Hx Influenza Vaccine This Season: No Medications and Allergies Active Medications: Active Medications Al Hydroxide/Mg Hydroxide (Milk Of Akbar Oh) 30 ml PO Q12H PRN PRN Reason: Mild Constipation Albuterol (Albuterol Neb (Prn)) 2.5 mg NEB Q2HR NEB PRN PRN Reason: SHORTNESS OF BREATH/WHEEZING Bisacodyl (Dulcolax Supp) 10 mg RECTAL DAILY PRN PRN Reason: SEVERE CONSITIPATION Chlorhexidine Gluconate (Chlorhexidine 2% Cloth) 3 pack TOPICAL DAILY@0400 PRN PRN Reason: Extra cloth needed Stop: 05/29/18 03:59 Chlorhexidine Gluconate (Chlorhexidine 2% Cloth) 3 pack TOPICAL DAILY@0400 NOEL Stop: 05/29/18 03:59 Dextrose (D50w Vial) 50 ml IV.PUSH UNSCH PRN PRN Reason: PER HYPOGLYCEMIA PROTOCOL Diphenhydramine HCl (Benadryl Inj) 50 mg IV.PUSH Q6H NOEL Famotidine (Pepcid Pf Inj) 20 mg IV.PUSH Q12HR NOEL Glucagon (Glucagon Inj) 1 mg OTHER PRN PRN PRN Reason: for Hypoglycemia Protocol Hydralazine HCl (Apresoline Inj) 10 mg IV.PUSH Q1H PRN PRN Reason: SBP>160, DBP>90 Sodium Chloride (Ns Inj) 1,000 mls @ 100 mls/hr IV.CONT .Q10H [facility] Last Admin: 05/23/18 06:03 Dose: 100 mls/hr Sodium Chloride (Ns Inj) 1,000 mls @ 84 mls/hr IV.CONT .[id number] [facility] Magnesium Sulfate Inj 4 gm/ (Sodium Chloride) 100 mls @ 50 mls/hr IV.SIG UNSCH PRN PRN Reason: For Magnesium 0.9 - 1.1 mg/dL Magnesium Sulfate Inj 2 gm/ (Sodium Chloride) 100 mls @ 50 mls/hr IV.SIG UNSCH PRN PRN Reason: For Magnesium 1.2 - 1.6 mg/dL Potassium Chloride (Kcl 40 Meq Premix Inj) 40 meq in 100 mls @ 25 mls/hr IV.SIG Q2H PRN PRN Reason: For Potassium 2.8 - 3.2 mEq/L Potassium Chloride (Kcl 40 Meq Premix Inj) 40 meq in 100 mls @ 25 mls/hr IV.SIG UNSCH PRN PRN Reason: For Potassium 3.3 - 3.5 mEq/L Potassium Chloride (Kcl 20 Meq Premix Inj) 20 meq in 100 mls @ 50 mls/hr IV.SIG Q2H PRN PRN Reason: For Potassium 2.8 - 3.2 mEq/L Potassium Phosphate 30 mmol/ (Sodium Chloride) 260 mls @ 42 mls/hr IV.SIG UNSCH PRN PRN Reason: SEE LABEL COMMENTS Sodium Phosphate 30 mmol/ (Sodium Chloride) 260 mls @ 42 mls/hr IV.SIG UNSCH PRN PRN Reason: For Phosphorus < 2.5 mg/dL Potassium Chloride (Kcl 20 Meq Premix Inj) 20 meq in 100 mls @ 50 mls/hr IV.SIG Q2H PRN PRN Reason: For Potassium 3.3 - 3.5 mEq/L Insulin Aspart (Novolog Insulin Correctional Sugar Inj) 0 unit SQ Q6HR [facility]; Protocol Labetalol HCl (Trandate Inj) 10 mg IV.PUSH Q4H PRN PRN Reason: Sbp>160, Dbp>90, Hr>65 Lactulose (Lactulose Liq) 30 ml PO DAILY PRN PRN Reason: SEVERE CONSITIPATION Magnesium Oxide (Mag-Ox) 800 mg PO UNSCH PRN PRN Reason: For Magnesium 1.2 - 1.6 mg/dL Methylprednisolone Sodium Succinate (Solumedrol Inj) 60 mg IV.PUSH Q12HR NOEL Morphine Sulfate (Morphine Inj) 2 mg IV.PUSH Q2H PRN PRN Reason: PAIN SCALE 6 TO 10 Ondansetron HCl (Zofran Inj) 4 mg IV.PUSH Q6H PRN PRN Reason: NAUSEA OR VOMITING Potassium Bicarb/Potassium Chloride (K-Lyte Cl Eff) 50 meq PO UNSCH PRN PRN Reason: For Potassium 3.3 - 3.5 mEq/L Potassium Phosphate (K-Phos Original) 2,000 mg PO Q4H PRN PRN Reason: Phosphorus Less Than 2.5 mg/dL Potassium Phosphate (K-Phos Original) 2,000 mg PO UNSCH PRN PRN Reason: SEE LABEL COMMENTS Senna/Docusate Sodium (Maryse-Colace) 1 tab PO BID NOEL Sennosides (Senokot) 17.2 mg PO Q12H PRN PRN Reason: Moderate Constipation Sodium Chloride (Ns Flush) 2 ml IV.FLUSH BID NOEL Sodium Chloride (Ns Flush) 2 ml IV.FLUSH PRN PRN PRN Reason: FLUSH AFTER USING IV ACCESS Allergies Allergy/AdvReac Type Severity Reaction Status Date / Time [place] And Derivatives Allergy Severe Verified 12/17/17 07:43 coconut Allergy Severe Verified 12/17/17 07:43 tomato Allergy Severe Verified 12/17/17 07:43 ciprofloxacin Allergy Intermediate DIZZINESS Verified 12/17/17 04:45 Home Medications Medication Instructions Recorded Confirmed Type lisinopril 20 mg PO DAILY 05/23/18 05/23/18 History Results - Labs CBC & Chem 7: 05/23/18 06:05 05/23/18 06:05 Labs: Short CBC 05/23/18 Range/Units 06:05 WBC 8.1 (4.0-11.0) th/mm3 Hgb 12.8 (11.6-15.3) gm/dL Hct 38.1 (35.0-46.0) % Plt Count 256 (150-450) th/mm3 [facility] 05/23/18 06:05 Sodium 140 Potassium 3.5 Chloride 106 Carbon Dioxide 21.1 BUN 11 Creatinine 0.83 Calcium 9.3 Exam Vital signs: Vital Signs 05/23/18 05:50 05/23/18 06:04 Temperature 98.3 F Pulse Rate 94 H 90 Respiratory Rate 16 Blood Pressure 154/83 H Pulse Oximetry 100 100 Intake & Output 05/22/18 05/23/18 05/23/18 18:59 06:59 18:59 Weight 113.398 kg - Constitutional no acute distress - Routine HEENT Exam Head: Present: normocephalic, atraumatic Eye: Present: EOMI, PERRL, conjunctivae pink ENT: Present: mucous membranes moist - Detailed ENT Exam Nose: Absent: sinus tenderness, nasal deviation Oropharynx: Present: drooling. Absent: lip swelling Oral mucosa: Present: moist Tongue: Present: elevation, swelling. Absent: lesions Dentition: Absent: dental caries - Routine Neck Exam Present: supple. Absent: JVD, thyromegaly - Routine Chest/Breast/Axilla Exam Chest wall: Absent: tenderness Breast: Absent: tenderness Axillae: Absent: lymphadenopathy - Routine Respiratory Exam Present: CTA bilaterally. Absent: rales, wheezes, crackles - Routine Cardiovascular Exam Present: RRR, S1, S2. Absent: murmur - Routine Abdominal Exam Present: soft, normoactive bowel sounds - Routine Extremities Exam Absent: cyanosis, clubbing, edema - Routine Skin Exam Present: intact - Routine Neurological Exam Present: alert, oriented X3, CN II-XII intact. Absent: sensory deficit, motor deficit Septic Shock Reassessment Septic shock perfusion: reassessment completed Caprini VTE Risk Assessment Caprini VTE Risk Assessment: No/Low Risk (score <= 1) Caprini Risk Assessment Model: Point Value = 1 Point Value = 2 Point Value = 3 Point Value = 5 Age 41-60 Minor surgery BMI > 25 kg/m2 Swollen legs Varicose veins or History of unexplained or recurrent spontaneous Oral contraceptives or hormone replacement Sepsis (< 1 month) Serious lung disease, including pneumonia (< 1 month) Abnormal pulmonary function Acute myocardial infarction Congestive heart failure (< 1 month) History of inflammatory bowel disease Medical patient at bed rest Age 61-74 Arthroscopic surgery Major open surgery (> 45 min) Laparoscopic surgery (> 45 min) Malignancy Confined to bed (> 72 hours) Immobilizing plaster cast Central venous access Age >= 75 History of VTE Family history of VTE Factor V Leiden Prothrombin [id number] Lupus anticoagulant Anticardiolipin antibodies Elevated serum homocysteine Heparin-induced thrombocytopenia Other congenital or acquired thrombophilia Stroke (< 1 month) Elective arthroplasty Hip, pelvis, or leg fracture Acute spinal cord injury (< 1 month) Prophylaxis Regimen: Total Risk Factor Score Risk Level Prophylaxis Regimen 0-1 Low Early ambulation 2 Moderate Order ONE of the following: *Sequential Compression Device (SCD) *Heparin 5000 units SQ BID 3-4 Higher Order ONE of the following medications: *Heparin 5000 units SQ TID *Enoxaparin/Lovenox 40 mg SQ daily (WT < 150 kg, CrCl > 30 mL/min) *Enoxaparin/Lovenox 30 mg SQ daily (WT < 150 kg, CrCl > 10-29 mL/min) *Enoxaparin/Lovenox 30 mg SQ BID (WT < 150 kg, CrCl > 30 mL/min) AND/OR *Sequential Compression Device (SCD) 5 or more Highest Order ONE of the following medications: *Heparin 5000 units SQ TID (Preferred with Epidurals) *Enoxaparin/Lovenox 40 mg SQ daily (WT < 150 kg, CrCl > 30 mL/min) *Enoxaparin/Lovenox 30 mg SQ daily (WT < 150 kg, CrCl > 10-29 mL/min) *Enoxaparin/Lovenox 30 mg SQ BID (WT < 150 kg, CrCl > 30 mL/min) AND *Sequential Compression Device (SCD) Assessment and Plan - Assessment and Plan Plan: Neuro/Psych: Ofirmev 1 gm IV q8h prn fever Morphine sulfate 2 mg subcu every 2 hours as needed pain CV: Essential hypertension Currently normal saline at 84 cc an hour Holding lisinopril 20 mg p.o. daily in light of angioedema As needed labetalol, hydralazine Nitropaste Resp: Angioedema Nasal cannula to maintain saturations greater than equal 92% Incentives parameter while awake Albuterol aerosols every 2 hours as needed dyspnea Airway cart to bedside with tracheostomy tray. GI: N.p.o. status Famotidine for GI prophylaxis : No indication for Rick catheter Endo: Sliding scale insulin with aspart insulin every 6 hours low regimen while on steroids We will send C1 esterase inhibitor for possible hereditary angioedema Renal: Creatinine currently within normal limits Monitor urine output Accurate I's and O's Heme: CBC within normal limits. ID: Monitor for signs of hematology infection FEN: Replace electrolytes as clinically indicated per ICU electrolyte protocol MSK: Elevated BMI Weight loss encouraged Access -Utilize peripheral IV. Central line if indicated Prophylaxis -GI -famotidine -DVT -SCD/holding pharmacological prophylaxis Level 3 H&P Stable from critical care medicine standpoint. Assign care to hospitalist in a.m. 05/24.
[2018-05-23] MEDS: Sod Chloride 0.9% Inj 1,000 ML IV.CONT SCH ×2 (07:58→17:56)
[2018-05-23] MEDS: Senna/Docusate Sodium 8.6/50 MG Tablet PO SCH ×2 (09:26→20:46)
[2018-05-23] MEDS: MethylPREDNISolone Sod Succinate Inj 125 MG/2 ML Vial IV.PUSH SCH ×2 (09:29→20:46)
[2018-05-23] MEDS: Famotidine PF Inj 20 MG/2 ML Vial IV.PUSH SCH ×2 (09:37→20:45)
[2018-05-23] MEDS: Insulin NovoLOG Aspart Correctional Sugar Inj SQ SCH ×3 (11:21→23:49)
[2018-05-24] MEDS ORDERED: Chlorhexidine Gluconate 2% 1 Pack (2 Cloths) TOPICAL SCH (04:00)
[2018-05-24] MEDS ORDERED: Chlorhexidine Gluconate 2% 1 Pack (2 Cloths) TOPICAL PRN (04:00)
[2018-05-24 04:16] LABS: Baso % (Auto) 0.2 % (0.0-2.0); Hemoglobin 11.7 gm/dL (11.6-15.3); Lymph # (Auto) 1.5 th/mm3 (1.0-4.8); Mean Corpuscular HGB Conc 32.4 % (32.0-36.0); Mean Corpuscular Volume 92.5 fL (80.0-100.0); Mono # (Auto) 0.2 th/mm3 (0.0-0.9); Neut # (Auto) 6.1 th/mm3 (1.8-7.7); Neut % (Auto) 77.8 % (16.0-70.0); Platelet Count 226 th/mm3 (150-450); Red Blood Count 3.89 mil/mm3 (4.00-5.30); Red Cell Distribution Width 13.1 % (11.6-17.2); White Blood Count 7.9 th/mm3 (4.0-11.0)
[2018-05-24 04:35] LABS: Activated Partial Thrombo Time 25.1 sec (24.3-30.1); INR 1.1 Ratio
[2018-05-24 04:51] LABS: Alanine Aminotransferase 60 U/L (10-53); Albumin 3.1 g/dL (3.4-5.0); Alkaline Phosphatase 80 U/L (45-117); Anion Gap 11 meq/L (5-15); Aspartate Aminotransferase 47 U/L (15-37); Blood Urea Nitrogen 8 mg/dL (7-18); Calcium 8.5 mg/dL (8.5-10.1); Carbon Dioxide 19.5 meq/L (21.0-32.0); Chloride 109 meq/L (98-107); Glomerular Filtration Rate Greater Than 89 mL/min (>89); Glucose,Random 132 mg/dL (74-106); Phosphorus 2.9 mg/dL (2.5-4.9); Sodium 139 meq/L (136-145); Total Protein 7.8 g/dL (6.4-8.2)
[2018-05-24] MEDS: Insulin NovoLOG Aspart Correctional Sugar Inj SQ SCH (05:19)
[2018-05-24] MEDS: Sod Chloride 0.9% Inj 1,000 ML IV.CONT SCH (06:14)
[2018-05-24] MEDS: Famotidine PF Inj 20 MG/2 ML Vial IV.PUSH SCH (08:49)
[2018-05-24] MEDS: MethylPREDNISolone Sod Succinate Inj 125 MG/2 ML Vial IV.PUSH SCH (08:49)
[2018-05-24] MEDS: Senna/Docusate Sodium 8.6/50 MG Tablet PO SCH (08:50)
--- NOTE | 2018-05-24 09:37 | P.DS ---
Date of admission: 05/23/18 06:49 Primary care physician: Jai Wilson Brief History from admission: 32-year-old AA female. Date of admission 05/23/2019. Past medical history includes essential hypertension and prior angioedema. This morning, she presents to the emergency department from home by EMS transport for lingual angioedema. Patient woke approximately 2 AM from sleep with a swollen tongue. 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 Patient has had tongue edema in the past. Patient has been treated as recently as December 2017 for marked angioedema of the tongue with diphenhydramine, famotidine and methylprednisolone succinate and fresh frozen plasma. Unclear whether or not patient has familiar angioedema but reportedly per medical record has been treated in childhood with angioedema of the tongue in there are family members with similar disorder.. Upon arrival to the emergency department paramedics report patient had received a one-time dose of diphenhydramine. Able to articulate some words but with some difficulty due to size of the tong able to protect her oral secretions. Unable to visualize uvula. Patient has received an additional segmental penicillins, and 25 mg of methylprednisolone succinate and 20 mg of famotidine. He states that her swelling is reducing and is able to articulate words. DS: Summary Hospital Course: Mrs. Moffett is a 32-year-old female. 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 Prior to onset of angioedema she had consumed a small amount of cheese and an additional food which may have had an ingredient that she was allergic to. She is on lisinopril but has never had a problem with lisinopril in the past. With her PCP they both decided to remain on lisinopril despite episodes of allergy to food she has never had a direct reaction to lisinopril. She wishes to continue on lisinopril. This morning she has resolution of her angioedema. She is feeling well today. No acute distress, swelling, or shortness of breath. Medically stable and cleared for discharge home. She will continue on a steroid for 3 more days. - Time Spent with Patient Total time spent providing and/or coordinating discharge services: Less than 30 minutes - Quality: VTE Deep Vein Thrombosis/Pulmonary Embolism Present on Admission: No Exam Vital signs: Vital Signs 05/23/18 09:49 05/23/18 10:00 05/23/18 11:00 Temperature 98.0 F Pulse Rate 100 H 100 H 99 H Respiratory Rate 21 26 H 19 Blood Pressure 135/91 H 150/95 H 112/59 L Pulse Oximetry 100 100 100 05/23/18 12:00 05/23/18 13:00 05/23/18 14:00 Temperature 98.7 F Pulse Rate 93 H 98 H 102 H Respiratory Rate 26 H 20 26 H Blood Pressure 129/73 137/83 123/84 Pulse Oximetry 100 100 100 05/23/18 15:00 05/23/18 16:00 05/23/18 17:00 Temperature 98.3 F Pulse Rate 94 H 87 75 Respiratory Rate 26 H 24 20 Blood Pressure 135/74 129/69 149/81 H Pulse Oximetry 100 100 100 05/23/18 17:33 05/23/18 18:00 05/23/18 20:00 Temperature Pulse Rate 74 73 Respiratory Rate 21 Blood Pressure 157/84 H Pulse Oximetry 100 100 05/23/18 22:00 05/24/18 00:00 05/24/18 04:00 Temperature 98.1 F 98.3 F Pulse Rate 66 91 H Respiratory Rate 21 24 Blood Pressure 146/81 H 128/91 H Pulse Oximetry 100 100 99 Intake & Output 05/23/18 05/24/18 05/24/18 18:59 06:59 18:59 Intake Total 1060 / 1060 1180 / 1180 Output Total 847 / 847 Balance 213 / 213 1180 / 1180 Intake: IV 1000 / 1000 1000 / 1000 NS Inj 1,000 ML @ 84 mls/hr IV. 1000 / 1000 1000 / 1000 CONT .[id number] [facility] Rx#:[id number] Oral 60 / 60 180 / 180 Intake (Blood Product) Amt 0 / 0 Plasma Thawed 5 Day Acda Unit 0 / 0 [id number] Plasma Thawed 5 Day Cp2d Unit 0 / 0 [id number] Output: Urine 847 / 847 Other: Post Void Residual 200 # Voids 2 Date of Last Bowel Movement 05/23/18 05/23/18 # Bowel Movements 1 0 Results Procedures completed during hospitalization: none Labs on day of discharge: Labs from last 24 hours 05/24/18 05/24/1805/24/18 05:19 04:04 04:04 WBC RBC Hgb Hct MCV MCH MCHC RDW Plt Count MPV Neut % (Auto) Lymph % (Auto) [place] % (Auto) Eos % (Auto) Baso % (Auto) Neut # (Auto) Lymph # (Auto) [place] # (Auto) Eos # (Auto) Baso # (Auto) WBC Differential Differential Comment PT INR APTT Sodium 139 Potassium 4.0 Chloride 109 H Carbon Dioxide 19.5 L Anion Gap 11 BUN 8 Creatinine 0.78 Estimated GFR Greater than 89 POC Glucose 128 H Random Glucose 132 H Lactic Acid 1.2 Calcium 8.5 D Phosphorus 2.9 Magnesium 2.0 Total Bilirubin 0.4 AST 47 H ALT 60 H Alkaline Phosphatase 80 Total Protein 7.8 Albumin 3.1 L Nasal Screen MRSA (PCR) C1 Esterase Inhibitor Blood Type Antibody Screen Blood Bank Comment 05/24/18 05/24/18 05/23/18 04:04 04:04 23:48 WBC 7.9 RBC 3.89 L Hgb 11.7 Hct 36.0 MCV 92.5 MCH 30.0 MCHC 32.4 RDW 13.1 Plt Count 226 MPV 9.0 Neut % (Auto) 77.8 H Lymph % (Auto) 19.0 [place] % (Auto) 3.0 Eos % (Auto) 0.0 Baso % (Auto) 0.2 Neut # (Auto) 6.1 Lymph # (Auto) 1.5 [place] # (Auto) 0.2 Eos # (Auto) 0.0 Baso # (Auto) 0.0 WBC Differential . Differential Comment Auto diff final PT 11.0 INR 1.1 APTT 25.1 Sodium Potassium Chloride Carbon Dioxide Anion Gap BUN Creatinine Estimated GFR POC Glucose 125 H Random Glucose Lactic Acid Calcium Phosphorus Magnesium Total Bilirubin AST ALT Alkaline Phosphatase Total Protein Albumin Nasal Screen MRSA (PCR) C1 Esterase Inhibitor Blood Type Antibody Screen Blood Bank Comment 05/23/18 05/23/18 05/23/18 17:26 11:20 09:39 WBC RBC Hgb Hct MCV MCH MCHC RDW Plt Count MPV Neut % (Auto) Lymph % (Auto) [place] % (Auto) Eos % (Auto) Baso % (Auto) Neut # (Auto) Lymph # (Auto) [place] # (Auto) Eos # (Auto) Baso # (Auto) WBC Differential Differential Comment PT INR APTT Sodium Potassium Chloride Carbon Dioxide Anion Gap BUN Creatinine Estimated GFR POC Glucose 144 H 141 H Random Glucose Lactic Acid Calcium Phosphorus Magnesium Total Bilirubin AST ALT Alkaline Phosphatase Total Protein Albumin Nasal Screen MRSA (PCR) C1 Esterase Inhibitor Pending Blood Type Antibody Screen Blood Bank Comment 05/23/18 05/23/18 08:20 06:45 WBC RBC Hgb Hct MCV MCH MCHC RDW Plt Count MPV Neut % (Auto) Lymph % (Auto) [place] % (Auto) Eos % (Auto) Baso % (Auto) Neut # (Auto) Lymph # (Auto) [place] # (Auto) Eos # (Auto) Baso # (Auto) WBC Differential Differential Comment PT INR APTT Sodium Potassium Chloride Carbon Dioxide Anion Gap BUN Creatinine Estimated GFR POC Glucose Random Glucose Lactic Acid Calcium Phosphorus Magnesium Total Bilirubin AST ALT Alkaline Phosphatase Total Protein Albumin Nasal Screen MRSA (PCR) Not detected C1 Esterase Inhibitor Blood Type O Positive Antibody Screen Negative Blood Bank Comment Discharge Plan - Discharge Disposition Patient Disposition: 01 Discharge Home - Discharge Condition Condition: Stable - Discharge Order Discharge Orders: Discharge Order (Routine); Ordered 05/24/18 Ordered By: Reji Silva - Discharge Details Anticipated Discharge Date: 05/24/18 - Physicians Team Primary Care Provider: Jai Wilson Attending Provider: Reji Silva
== END 2018-05-24 11:00 | disposition home or self-care (01) ==
LOC: NEPC 05:38 → NEDA 06:49 → HIMC 08:10
PROVIDERS: ADMIT Hospitalist; ATTEND Hospitalist